=== PATIENT | female | born 1955 | race Caucasian/White ===

== ENCOUNTER 2018-05-24 07:59 | Day surgery (SDC) | payer OTHER ==
--- NOTE | 2018-05-24 07:28 | HP ---
DATE OF SURGERY: 05/24/2018 ADMISSION DIAGNOSIS: Screening colonoscopy. ANTICIPATED PROCEDURE: Colonoscopy. HISTORY OF PRESENT ILLNESS: She does have history of polyps. PAST MEDICAL HISTORY: ALLERGIES: NONE. MEDICATIONS: None. PAST SURGICAL HISTORY: Tonsillectomy, section, cholecystectomy, D&C, skin cancer. SOCIAL HISTORY: Positive tobacco. Negative ETOH. FAMILY HISTORY: Negative. REVIEW OF SYSTEMS: Negative. PHYSICAL EXAMINATION: VITAL SIGNS: Normal. CHEST: Clear. COR: Regular. PLAN: Colonoscopy.
[~2018-05-24 07:59] MED LIST: Lactated Ringers 1,000 ML IV SCH
[2018-05-24] MEDS ORDERED: DIPRIVAN 200 MG/20 ML IV ONE (08:00)
[2018-05-24] MEDS ORDERED: Lactated Ringers 1,000 ML IV ONE (08:26)
[2018-05-24 11:42] VITALS: O2SAT 98
[2018-05-24 12:01] VITALS: BP 110/70; PULSE 59
--- NOTE | 2018-05-24 14:37 | OP ---
SURGERY DATE/TIME: 05/24/2018 1048 PREOPERATIVE DIAGNOSIS: Screening with previous history of polyps. POSTOPERATIVE DIAGNOSIS: 1) Three polyps two in the sigmoid in one jar, one in the rectum in one jar. 2) Moderate internal hemorrhoids. PROCEDURE: Colonoscopy complete to cecum with hot polypectomy x3 submitted in two jars. SURGEON: Alex Galindo M.D. ANESTHESIA: MAC. COMPLICATIONS: None. CONDITION: Stable. INDICATION: The patient requiring evaluation. She had previous polyps in the past greater than three years. DESCRIPTION OF PROCEDURE: Taken to the endoscopy. Left lateral decubitus position. MAC sedation provided. Anal digital examination satisfactory. Anal tone satisfactory. The scope advanced. A little bit narrow. A little bit tortuous. The scope advanced up to the cecum. Base of the cecum and appendiceal orifice, ileocecal valve normal. There is a fair number of bubbles and Mylicon was placed and this cleared this up. Ascending, hepatic, transverse, splenic, descending satisfactory. Mid sigmoid two polyps were taken with hot biopsy forceps coming down to the rectum, one polyp was taken with hot biopsy forceps. Moderate internal hemorrhoids were present. The scope withdrawn. IMPRESSION: Successful hot polypectomy x3. PLAN: Follow up in three years.
== END 2018-05-24 12:02 | disposition home or self-care (01) ==
LOC: SDC 07:59
PROVIDERS: ATTEND Surgery
DX: K63.5 Polyp of colon (principal); K62.1 Rectal polyp; Z12.11 Encounter for screening for malignant neoplasm of colon; Z86.010 Personal history of colon polyps; K64.8 Other hemorrhoids
CPT/HCPCS: J2704